=== PATIENT | male | born 1970 | race Caucasian/White ===

== ENCOUNTER 2022-02-21 11:04 | Outpatient (CLI) | payer BC ==
[2022-02-21 11:33] LABS: HEMATOCRIT 47.6 % (36.7-47.1); MEAN CORPUSCULAR HEMOGLOBIN 30.5 uug (23.8-33.4); MEAN CORPUSCULAR VOLUME 89.6 fL (73.0-96.2); PLATELET COUNT (AUTO) 340 K/uL (152-348)
[2022-02-21 11:46] LABS: CREATININE 1.2 mg/dL (0.6-1.3); POTASSIUM 4.5 mmol/L (3.5-5.1)
[2022-02-21] MEDS ORDERED: IOHEXOL 300MG/ML 100 ML INFUS..BTL ONE (12:16)
[2022-02-21] MEDS ORDERED: IV NORMAL SALINE 250 ML IV ONE (12:16)
[2022-02-21] MEDS ORDERED: SWABABLE VALVE TRANSFER SET EA MC ONE (12:16)
== END 2022-02-21 23:59 | disposition home or self-care (01) ==
LOC: LAB 11:04
PROVIDERS: ATTEND Internal Medicine
DX: R16.0 Hepatomegaly, not elsewhere classified (principal); I25.10 Atherosclerotic heart disease of native coronary artery without angina pectoris; R07.9 Chest pain, unspecified; R10.9 Unspecified abdominal pain
CPT/HCPCS: 71260; 80048; 85025; 36415; 74177; Q9967